=== PATIENT | female | born 1985 | race Caucasian/White ===

== ENCOUNTER 2023-03-17 17:26 | Inpatient (IN) | payer BC, OTHER ==
[2023-03-17] MEDS ORDERED: BETAMET ACET/BETAMET NA PH 30 MG/5 ML VIAL ONE (18:22)
[2023-03-17] MEDS ORDERED: AMPICILLIN SODIUM 2 GM VIAL ONE (18:23)
[2023-03-17] MEDS ORDERED: AMPICILLIN SODIUM 2 GM VIAL IVPB ONE (18:30)
[2023-03-17] MEDS ORDERED: LACTATED RINGERS SOLUTION 1,000 ML IV ONE (18:30)
[2023-03-17] MEDS ORDERED: BETAMET ACET/BETAMET NA PH 30 MG/5 ML VIAL IM ONE (18:30)
[2023-03-17 18:56] VITALS: BMI 35.8
[2023-03-17 19:08] LABS: BASO % 0.1 % (0-2.0); EOS % 0.9 % (0-4.5); HEMATOCRIT 32.5 % (32.4-45.2); HEMOGLOBIN 10.8 GM/dL (10.7-15.3); LYMPH % 17.8 % (8-40); MCHC 33.1 g/dl (32.0-36.0); MEAN CELL VOLUME 78.4 fl (80-96); MEAN PLT VOLUME 8.3 fl (7.5-11.1); MONO % 7.5 % (3.8-10.2); NEUT % 73.7 % (42.8-82.8); PLATELET COUNT 223 10^3/uL (134-434); RBC 4.15 M/mm3 (3.60-5.2); WHITE BLOOD COUNT 7.6 K/mm3 (4.0-10.0)
[2023-03-17 19:19] LABS: INR 0.98 (0.83-1.09); PROTHROMBIN TIME (PATIENT) 11.4 SEC (9.7-13.0)
[2023-03-17 19:22] LABS: ACTIVATED PTT 24.9 SECONDS (25.2-36.5)
[2023-03-17 19:40] LABS: POTASSIUM 4.3 mmol/L (3.5-5.1)
[2023-03-17 19:42] LABS: CALCIUM 8.6 mg/dL (8.5-10.1)
[2023-03-17 19:43] LABS: BLOOD UREA NITROGEN 9.8 mg/dL (7-18)
[2023-03-17 19:46] LABS: CREATININE 0.7 mg/dL (0.55-1.3)
[2023-03-17] MEDS ORDERED: AMPICILLIN SODIUM 1 GM VIAL ONE (22:28)
[2023-03-17] MEDS: AMPICILLIN - 1 GM in SODIUM CHLORIDE 100 ML IVPB SCH (22:34)
[2023-03-18] MEDS ORDERED: OXYTOCIN 30 UNITS in 0.9% NS 30 UNIT/500 ML INFUS.BAG IVPB ONE (00:53)
[2023-03-18] MEDS ORDERED: OXYTOCIN 30 UNITS in 0.9% NS 30 UNIT/500 ML INFUS.BAG IVPB SCH (01:00)
[2023-03-18] MEDS ORDERED: AMPICILLIN SODIUM 1 GM VIAL ONE ×2 (02:21→05:54)
[2023-03-18] MEDS: AMPICILLIN - 1 GM in SODIUM CHLORIDE 100 ML IVPB SCH ×3 (02:30→12:07)
[2023-03-18] MEDS ORDERED: ACETAMINOPHEN 325 MG TABLET (FP) ONE ×2 (02:39→11:43)
[2023-03-18] MEDS ORDERED: ACETAMINOPHEN 325 MG TABLET (FP) PO ONE (02:40)
[2023-03-18] MEDS ORDERED: OXYTOCIN 20 UNITS in 0.9% NS 20 UNIT/1,000 ML INFUS.BAG IV ONE (09:56)
[2023-03-18] MEDS ORDERED: LIDOCAINE HCL 1% PRESERVATIVE FREE - 30ML VIAL ONE (09:58)
[2023-03-18 10:06] LABS: HIV INTERPRETATION NEGATIVE (NEGATIVE)
[2023-03-18] MEDS ORDERED: METHYLERGONOVINE MALEATE 0.2 MG/1 ML AMP IM PRN (10:41)
[2023-03-18] MEDS ORDERED: ACETAMINOPHEN 325 MG TABLET (FP) PO PRN (10:41)
[2023-03-18] MEDS ORDERED: BENZOCAINE 20% 57 GM BOTTLE TP PRN (10:41)
[2023-03-18] MEDS ORDERED: BISACODYL 10 MG SUPP.RECT RC PRN (10:41)
[2023-03-18] MEDS ORDERED: WITCH HAZEL 50% (TUCKS) 40 PAD/JAR PAD TP PRN (10:41)
[2023-03-18] MEDS ORDERED: BENZOCAINE 28 GM HEMORRHOIDAL OINTMENT TP PRN (10:41)
[2023-03-18] MEDS ORDERED: oxyCODONE HCL 5 MG TABLET PO PRN (10:41)
[2023-03-18] MEDS ORDERED: OXYTOCIN 20 UNITS in 0.9% NS 20 UNIT/1,000 ML INFUS.BAG IV SCH (10:45)
[2023-03-18] MEDS: IBUPROFEN 600 MG TABLET (FP) PO PRN ×2 (12:59→20:56)
[2023-03-18 14:53] VITALS: RESP 18
[2023-03-19] MEDS: IBUPROFEN 600 MG TABLET (FP) PO PRN ×3 (05:47→23:51)
[2023-03-19 07:45] LABS: BASO % 0.2 % (0-2.0); EOS % 0.1 % (0-4.5); HEMATOCRIT 26.7 % (32.4-45.2); HEMOGLOBIN 8.7 GM/dL (10.7-15.3); LYMPH % 17.6 % (8-40); MCHC 32.8 g/dl (32.0-36.0); MEAN CELL VOLUME 79.2 fl (80-96); MEAN PLT VOLUME 8.6 fl (7.5-11.1); MONO % 6.9 % (3.8-10.2); NEUT % 75.2 % (42.8-82.8); PLATELET COUNT 204 10^3/uL (134-434); RBC 3.37 M/mm3 (3.60-5.2); WHITE BLOOD COUNT 13.2 K/mm3 (4.0-10.0)
[2023-03-19] MEDS ORDERED: DIPHTH,PERTUSS(ACELL),TET 0.5 ML DISP.SYRIN IM ONE (10:00)
[2023-03-19] MEDS: PRENATAL VITAMINS W/ FOLIC ACID TABLET (FP) PO SCH (10:14)
[2023-03-19] MEDS: FERROUS SO4 325 MG TABLET (FP) PO SCH ×2 (10:14→22:00)
[2023-03-19 13:55] LABS: POC NITRAZINE POS
[2023-03-19] MEDS ORDERED: SENNOSIDES/DOCUSATE COMBO (SENNA PLUS) TABLET (UD) PO PRN (22:00)
[2023-03-20 10:28] VITALS: BP 115/55; PULSE 89; TEMP 99
[2023-03-20] MEDS: FERROUS SO4 325 MG TABLET (FP) PO SCH (11:00)
[2023-03-20] MEDS: PRENATAL VITAMINS W/ FOLIC ACID TABLET (FP) PO SCH (11:00)
== END 2023-03-20 20:43 | disposition home or self-care (01) | DRG 807 ==
LOC: JDEL 17:26 → JLDR 18:04 → J3W 03-18 12:30
PROVIDERS: ADMIT Obstetrics & Gynecology; ATTEND Obstetrics & Gynecology
PROC: 10E0XZZ Delivery of Products of Conception, External Approach (ICD-10-PCS; principal; 2023-03-18)
PROC: 0W8NXZZ Division of Female Perineum, External Approach (ICD-10-PCS; 2023-03-18)
PROC: 0HQ9XZZ Repair Perineum Skin, External Approach (ICD-10-PCS; 2023-03-18)
DX: O42.013 Preterm premature rupture of membranes, onset of labor within 24 hours of rupture, third trimester (principal); Z37.0 Single live birth; O70.0 First degree perineal laceration during delivery; O24.424 Gestational diabetes mellitus in childbirth, insulin controlled; Z3A.35 35 weeks gestation of pregnancy
CPT/HCPCS: 36415; 80048; 82962; 83986-QW; 85025; 85610; 85730; 86780; 86850; 86900; 86901; 87389; 90715